=== PATIENT | male | born 1950 | race Caucasian/White ===

== ENCOUNTER → 2019-03-09 | Day surgery (SDC) | payer MEDICARE ==
[~2019-03-09] MED LIST: Buffered Lidocaine 1% SYRIN* 1 ML/SYRINGE INTRADERM ONE; Lidocaine 1% MPF ** 5 ML VIAL ONE; Lidocaine 2% w/ EPI 1:200,000* 20 ML SDV VIAL ONE; Midazolam* 1 MG/ML 2 ML VIAL (2 MG) ONE; Neomycin/Polymy/Dex OPTH.SUSP* MAXITROL 0.1% 5 ML ONE; Povidone Iodine 5% OPTH* 30 ML BTL ONE; Proparacaine 0.5% OPHTH.SOL* 15 ML BTL ONE; mitoMYcin PWD* 0.2 MG in Sterile Water for Inj* 1 ML OPHTHALMIC SCH
[2019-03-09 09:56] VITALS: BP 131/74
--- NOTE | 2019-03-09 12:16 | OP ---
OPERATIVE NOTE: DATE OF OPERATION: 03/09/19 DATE OF : 50 SURGEON: Hayden Dunlap M.D. ANESTHESIA: Local with MAC. PRE-OP DIAGNOSIS: Uncontrolled glaucoma, right eye. POST-OP DIAGNOSIS: Uncontrolled glaucoma, right eye. OPERATIVE PROCEDURE: XEN implant, right. COMPLICATIONS: None. PROCEDURE: The patient was prepped and draped in the usual sterile fashion. Lid speculum placed. 2 % lidocaine with epinephrine on the cornea drops. Paracentesis made at the 10 o'clock position with 75 blade. 1% non-preservative intracameral lidocaine injected, 0.1 cc followed by ProVisc. A 1.7-mm keratome used to make a clear corneal incision at the 7 o'clock position. XEN implant stained with dye and then placed at the 1 o'clock position subconjunctivally using its senior asic engineer. Mitomycin-C 0.2 m g/mL 0.1 cc injected superiorly near where the XEN implant is. Balanced salt solution used to rinse t he ocular surface and rinse the ProVisc out of the anterior chamber. Topical Maxitrol given. [id number]/[facility] #: [id number]
== END | disposition home or self-care (01) ==
LOC: OREAST 07:04
PROVIDERS: ATTEND Specialist
DX: H40.1112 Primary open-angle glaucoma, right eye, moderate stage (principal); H40.1121 Primary open-angle glaucoma, left eye, mild stage; I10 Essential (primary) hypertension; I35.0 Nonrheumatic aortic (valve) stenosis
CPT/HCPCS: A9270-GY; C1725; J2250; J9280

== ENCOUNTER 2019-08-31 10:15 | Day surgery (SDC) | payer MEDICARE ==
[~2019-08-31 10:15] MED LIST changes: +Acetaminophen TAB* 325 MG PO PRN; -Lidocaine 1% MPF ** 5 ML VIAL ONE; -Lidocaine 2% w/ EPI 1:200,000* 20 ML SDV VIAL ONE; -Midazolam* 1 MG/ML 2 ML VIAL (2 MG) ONE; -Neomycin/Polymy/Dex OPTH.SUSP* MAXITROL 0.1% 5 ML ONE; -Povidone Iodine 5% OPTH* 30 ML BTL ONE; -Proparacaine 0.5% OPHTH.SOL* 15 ML BTL ONE; +mitoMYcin 0.2 MG (0.02%) in Sterile Water for Inj* 1 ML OPHTHALMIC SCH; -mitoMYcin PWD* 0.2 MG in Sterile Water for Inj* 1 ML OPHTHALMIC SCH
[2019-08-31] MEDS ORDERED: Povidone Iodine 5% OPTH* 30 ML BTL ONE (10:28)
[2019-08-31] MEDS ORDERED: Neomycin/Polymy/Dex OPTH.SUSP* MAXITROL 0.1% 5 ML ONE (10:28)
[2019-08-31] MEDS ORDERED: acetaZOLAMIDE TAB* 250 MG ONE (10:28)
[2019-08-31] MEDS ORDERED: Lidocaine 2% w/ EPI 1:200,000* 20 ML SDV VIAL ONE (10:28)
[2019-08-31] MEDS ORDERED: Phenylephrine OPHTH SOL 2.5%* 2 ML ONE (10:28)
[2019-08-31] MEDS ORDERED: Proparacaine 0.5% OPHTH.SOL* 15 ML BTL ONE (10:28)
[2019-08-31] MEDS ORDERED: Cyclopentolate 1% OPTH.SOL* 2 ML BTL ONE (10:28)
[2019-08-31] MEDS ORDERED: Lidocaine 1% MPF ** 5 ML VIAL ONE (10:28)
[2019-08-31] MEDS ORDERED: Ketorolac 0.5% OPHTH (NF) 0.5 % 5 ML BTL ONE (10:28)
[2019-08-31] MEDS ORDERED: Midazolam* 1 MG/ML 5 ML VIAL (5 MG) ONE (11:57)
[2019-08-31] MEDS ORDERED: fentaNYL* 50 MCG/ML 2 ML VIAL (100 MCG VIAL) ONE (12:29)
[2019-08-31 13:01] VITALS: BP 119/67
--- NOTE | 2019-09-01 01:28 | OP ---
DATE OF OPERATION: 08/31/19 [facility] DATE OF : 50 SURGEON: Hayden Dunlap MD ANESTHESIA: Local with MAC. PREOPERATIVE DIAGNOSIS: Open-angle glaucoma, right eye. POSTOPERATIVE DIAGNOSIS: Open-angle glaucoma, right eye. OPERATIVE PROCEDURE: XEN stent, right eye. COMPLICATIONS: None. DESCRIPTION OF PROCEDURE: The patient was given topical anesthesia 2% lidocaine with epinephrine. The eye was prepped and draped in the usual sterile fashion. Lid speculum was placed. A 6-0 silk traction suture was placed through the superior limbus and eye rotated inferiorly. Paracentesis was made with 75 blade at the 9 o'clock position. The XEN stent needle was inserted subconjunctivally 7 mm posterior to the limbus and then, engaging to the sclera 2.5 mm posterior to the limbus, advanced into the anterior chamber, all at 12 o'clock position, the device was deployed without difficulty. The position was confirmed using a gonioprism. Mitomycin-C 0.2 mg/mL, 0.2 mL was injected sub-Tenon's and milked posteriorly, then anterior chamber irrigated with balanced salt solution to prime the tube. Good bleb developed. The traction suture removed. [id number]/[facility] #: [id number] [facility]
== END 2019-08-31 13:06 | disposition home or self-care (01) ==
LOC: OREAST 10:15
PROVIDERS: ATTEND Specialist
DX: H40.1112 Primary open-angle glaucoma, right eye, moderate stage (principal); H40.1121 Primary open-angle glaucoma, left eye, mild stage; I10 Essential (primary) hypertension; D51.0 Vitamin B12 deficiency anemia due to intrinsic factor deficiency; L71.9 Rosacea, unspecified; M15.9 Polyosteoarthritis, unspecified; Z96.651 Presence of right artificial knee joint
CPT/HCPCS: A9270-GY; C1725; J2250; J3010; J9280